=== PATIENT | female | born 1985 | race Caucasian/White ===

== ENCOUNTER 2023-10-02 20:13 | Emergency (ER) | payer SELFPAY ==
[2023-10-02 20:13] VITALS: BP 108/66; PULSE 76; RESP 16; TEMP 36.8; O2SAT 97; BMI 23.3
[2023-10-02 20:17] VITALS: BP 108/66; PULSE 74; RESP 18; O2SAT 96
--- NOTE | 2023-10-02 20:20 | XRR_ITS ---
PROCEDURE INFORMATION: Exam: XR Sacrum and Coccyx, 2 or More Views Exam date and time: 10/02/2023 8:27 PM Age: 38 years old Clinical indication: Injury or trauma; Fall; Other: Pain; Additional info: Fall pain TECHNIQUE: Imaging protocol: XR of the sacrum and coccyx, 2 or more views. COMPARISON: No relevant prior studies available. FINDINGS: Bones/joints: No definitive plain film evidence of acute fracture or dislocation. Alignment is grossly intact. Soft tissues: Normal. XR/XR sacrum coccyx min 2V [id number] IMPRESSION: No definitive plain film evidence of acute fracture or dislocation.
--- NOTE | 2023-10-02 20:29 | W.ED.FALL ---
HPI - Fall General: Chief Complaint: Fall Stated Complaint: Fall in Shower Time Seen by Provider: 10/02/23 20:18 History of Present Illness: Patient brought into the ER by EMS in police custody. Patient is a inmate over the shelter and slipped in the shower and fell and landed on her bottom and hurt her tailbone. This happened a couple hours ago. EMS gave her 15 mg of Toradol on route here and is starting to help for the pain. Patient denies any other complaint at this time. Review of Systems General: Reports: 10 or more systems reviewed and unremarkable except in HPI and below [facility] Female Reproductive History: Date of last menstrual period: 08/12/23 Physical Exam Neck/C-Spine: COMMON NORMALS: full ROM, no lymphadenopathy, supple, no meningeal signs, no JVD and Thyroid normal THYROID: Thyroid normal Chest: COMMONS NORMALS: normal inspection of the chest and normal palpation of entire chest wall Resp: COMMON NORMALS: normal respiratory effort, No retractions, No use of accessory muscles and clear to auscultation bilaterally AUSCULTATION: clear to auscultation bilaterally Cardio: COMMON NORMALS: no JVD, regular rate, regular rhythm, S1 normal heart sound present, S2 normal heart sound present, No gallops present (Cardio), No clicks present (Cardio), No murmurs present (Cardio) and No rub (Cardio) RATE: regular rate RHYTHM: regular rhythm HEART SOUNDS: S1 normal heart sound present and S2 normal heart sound present GI: COMMON NORMALS: Normal to inspection, nondistended, normoactive bowel sounds present, Soft to palpation, non-tender, No hepatosplenomegaly present and no masses PALPATION: Yes Soft to palpation and Yes No hepatosplenomegaly present Back/Pelvis: OTHER: No tenderness over the pelvis or lumbar spine, mild tenderness over the sacrococcygeal junction with a large amount tenderness over the coccyx itself. No obvious crepitus or deformity Neuro: MENINGEAL SIGNS: Yes no meningeal signs Course Vital Signs: Vital signs: Vital Signs Temperature 98.3 F 10/02/23 20:13 Pulse Rate 74 10/02/23 20:17 Respiratory Rate 18 10/02/23 20:17 Blood Pressure 108/66 10/02/23 20:17 Pulse Oximetry 96 10/02/23 20:17 Oxygen Delivery Me thod Room Air 10/02/23 20:17 MDM - Fall Medical Decision Making X-ray of the sacrum and coccyx was negative per radiology. Patient be discharged back to the shelter and she can take [id number] Tylenol and Motrin as needed for pain. Differential Diagnosis Unlikely syncope, dislocation of shoulder region, fracture of wrist, compression fracture, concussion with loss of consciousness or concussion without loss of consciousness Medical Records I reviewed the patient's medical records. Lab Data I reviewed the patient's lab results. Radiology Impressions Sacrum and Coccyx X-Ray 10/02/23 20:20 IMPRESSION: No definitive plain film evidence of acute fracture or dislocation. All radiology interpretation(s) finalized by discharge Discharge Plan Discharge Patient Disposition: Home Clinical Impression: Fall, Acute coccygeal pain Condition: Stable Discharge Orders: Discharge ED (Routine); Ordered 10/02/23 Ordered By: Daniel Pinon Patient Instructions: Coccyx Injury (ED) Activity Restrictions/Additional Instructions: Your x-ray did not show any fractures of your tailbone. It may just be bruised. Please continue to take Tylenol and/or Motrin as directed as for pain. Please follow-up with your physician for further evaluation and treatment. Coding Level of Care Code ED [employer] for Bubba Delacruz
[2023-10-02 21:52] VITALS: BP 105/85; PULSE 71; RESP 16; O2SAT 98
== END 2023-10-02 21:54 | disposition home or self-care (01) ==
PROVIDERS: Emergency Provider Emergency Medicine
DX: M53.3 Sacrococcygeal disorders, not elsewhere classified (principal)
CPT/HCPCS: 72220; 99282